=== PATIENT | male | born 1950 | race Caucasian/White ===

== ENCOUNTER 2018-02-04 07:49 | Outpatient (CLI) | payer OTHER ==
[~2018-02-04 07:49] MED LIST: CLONAZEPAM1 MG PO; DOCUSATE SODIU100 MG PO; PERCOCET 5/3251 TAB PO
== END 2018-02-04 15:55 | disposition home or self-care (01) ==
LOC: MRI 07:49
DX: M54.16 Radiculopathy, lumbar region (principal)
CPT/HCPCS: 72148

== ENCOUNTER 2018-03-09 08:45 | Emergency (ER) | payer OTHER ==
[~2018-03-09] VITALS: Ht 162.6 cm; Wt 78.9 kg
[2018-03-09] MEDS ORDERED: SYNTHROID75 MCG (08:58)
[2018-03-09] MEDS ORDERED: GLIMEPIRIDE2 MG (09:00)
[2018-03-09] MEDS ORDERED: ZOCOR20 MG (09:00)
== END 2018-03-09 12:33 | disposition home or self-care (01) ==
LOC: ER 08:45
DX: N39.0 Urinary tract infection, site not specified (principal)

== ENCOUNTER → 2018-03-27 | Outpatient (CLI) | payer OTHER ==
[~2018-03-27] MED LIST changes: +GLIMEPIRIDE2 MG; +SYNTHROID75 MCG; +ZOCOR20 MG
== END | disposition home or self-care (01) ==
LOC: RAD 10:25
DX: M25.552 Pain in left hip (principal)

== ENCOUNTER 2018-04-24 10:16 | Outpatient (CLI) | payer OTHER | END 2018-04-24 10:22 | disposition home or self-care (01) | LOC: RAD 10:16 | DX: M75.41 Impingement syndrome of right shoulder (principal) ==

== ENCOUNTER 2019-12-15 10:31 | Outpatient (CLI) | payer OTHER | END 2019-12-15 10:33 | disposition home or self-care (01) | LOC: RAD 10:31 | PROVIDERS: ATTEND Urology | DX: Z01.811 Encounter for preprocedural respiratory examination (principal) ==